=== PATIENT | male | born 1965 | race Caucasian/White ===

== ENCOUNTER 2017-11-30 05:57 | Day surgery (SDC) | payer OTHER | END 2017-11-30 10:30 | disposition home or self-care (01) | LOC: AMB-ENDOS 05:57 | DX: K64.2 Third degree hemorrhoids (principal); Z12.11 Encounter for screening for malignant neoplasm of colon ==

== ENCOUNTER 2019-12-18 06:02 | Day surgery (SDC) | payer OTHER | END 2019-12-18 18:20 | disposition home or self-care (01) | LOC: CIR.AMB 06:02 | DX: K40.90 Unilateral inguinal hernia, without obstruction or gangrene, not specified as recurrent (principal); D17.6 Benign lipomatous neoplasm of spermatic cord ==

== ENCOUNTER 2020-05-11 08:41 | Outpatient (CLI) | payer OTHER | END 2020-05-11 08:47 | disposition home or self-care (01) | LOC: LAB 08:41 | PROVIDERS: ATTEND Urology | DX: R97.21 Rising PSA following treatment for malignant neoplasm of prostate (principal) ==

== ENCOUNTER → 2020-05-19 | Outpatient (CLI) | payer OTHER | END | disposition home or self-care (01) | LOC: TOM 10:50 | PROVIDERS: ATTEND Specialist | DX: R10.30 Lower abdominal pain, unspecified (principal) ==